=== PATIENT | male | born 1965 | race Caucasian/White ===

== ENCOUNTER 2019-12-17 15:03 | Outpatient (CLI) | payer OTHER, BC ==
--- NOTE | 2019-12-17 18:20 | XRAY Report ---
PROCEDURE: Ribs w/PA Chest RT INDICATIONS: PLEURODYNIA TECHNIQUE: 2 views of the right ribs were acquired, along with a single view chest. COMPARISON: None. FINDINGS: Surgical changes and devices: None. Bones and chest wall: No fractures or dislocations. No suspicious bony lesions. Overlying soft tis sues appear unremarkable. No rib fractures visualized. Lungs and pleura: No pleural effusions or pneumothorax. Lungs appear clear. Mediastinum: Mediastinal contours appear normal. Heart size is normal. IMPRESSION: Chest without acute cardiopulmonary abnormalities. No rib fractures visualized. Reviewed by: Lefty Rodriguez MD on 12/17/2019 5:18 PM [facility] Approved by: Lefty Rodriguez MD on 12/17/2019 5:18 PM [facility] Station ID: [id number]
== END 2019-12-17 15:04 | disposition home or self-care (01) ==
LOC: DI 15:03
PROVIDERS: ATTEND Nurse Practitioner Family
DX: R07.81 Pleurodynia (principal)